=== PATIENT | female | born 1945 | race Caucasian/White ===

== ENCOUNTER → 2019-12-18 12:09 | Outpatient (BNVA) | payer MEDICARE, OTHER, SELFPAY | PROVIDERS: Family Provider Family Medicine; Visit Provider Family Medicine | DX: D69.6 Thrombocytopenia, unspecified (principal); R20.2 Paresthesia of skin; F41.9 Anxiety disorder, unspecified; C14.0 Malignant neoplasm of pharynx, unspecified; Z98.890 Other specified postprocedural states | CPT/HCPCS: 80053; 85025 ==

== ENCOUNTER → 2020-01-15 14:01 | Outpatient (BNVA) | payer MEDICARE, OTHER, SELFPAY | PROVIDERS: Family Provider Family Medicine; Visit Provider Nurse Practitioner | DX: N39.0 Urinary tract infection, site not specified (principal); Z68.1 Body mass index [BMI] 19.9 or less, adult | CPT/HCPCS: 81000 ==